=== PATIENT | male | born 1940 | race Caucasian/White ===

== ENCOUNTER → 2017-12-22 | Outpatient (CLI) | payer OTHER | LOC: BRMIMAGING 10:29 | PROVIDERS: ATTEND Registered Nurse | DX: J98.4 Other disorders of lung (principal); J98.59 Other diseases of mediastinum, not elsewhere classified | CPT/HCPCS: 71046-PO ==

== ENCOUNTER → 2018-01-27 | Outpatient (CLI) | payer OTHER | LOC: BRMIMAGING 10:45 | PROVIDERS: ATTEND Family Medicine | DX: N28.1 Cyst of kidney, acquired (principal) | CPT/HCPCS: 76700-PO ==

== ENCOUNTER → 2018-02-09 | Outpatient (CLI) | payer OTHER | LOC: BRMIMAGING 09:41 | PROVIDERS: ATTEND Registered Nurse | DX: R10.32 Left lower quadrant pain (principal) | CPT/HCPCS: 76705-PO ==

== ENCOUNTER → 2018-10-16 | Outpatient (CLI) | payer OTHER | LOC: BRMIMAGING 08:41 | PROVIDERS: ATTEND Registered Nurse | DX: R07.81 Pleurodynia (principal) | CPT/HCPCS: 71100-PO ==